=== PATIENT | female | born 1985 | race Asian ===

== ENCOUNTER 2017-05-09 11:51 | Emergency (ER) | payer BC, OTHER ==
[~2017-05-09] VITALS: Ht 165.1 cm; Wt 62.2 kg
[2017-05-09 12:04] VITALS: TEMP 36.5; Ht 165.1 cm; Wt 62.2 kg
[2017-05-09] MEDS ORDERED: PRENTAB26 PO (12:04)
[2017-05-09] MEDS ORDERED: SODIUM CHLORIDE 0.9% 1000ML 2,000 ML IV STA (12:38)
[2017-05-09] MEDS ORDERED: ONDANSETRON 4MG OD TAB PO ONE (12:45)
[2017-05-09 13:04] LABS: ISTAT CREATININE 0.7 mg/dl (0.6-1.3); ISTAT HEMOGLOBIN 12.2 g/dl (12.0-16.0); ISTAT IONIZED CALCIUM 0.93 mmol/l (1.12-1.32)
--- NOTE | 2017-05-09 13:32 | DIAGNOSTIC IMAGING REPORT ---
SINGLE VIEW CHEST CLINICAL HISTORY: Weakness. Change in mental status. Reportedly . FINDINGS: An AP, portable, upright chest radiograph is obtained. No prior studies are available for comparison at the time of dictation. The examination is degraded by portable technique, apical lordotic positioning, and patient rotation. The cardiomediastinal silhouette is unremarkable. A nipple shadow projects over the right lung base. There are low lung volumes. The lungs and pleural spaces are clear. No pneumothorax is seen. The bony thorax is grossly intact. IMPRESSION: Low lung volumes with no acute cardiopulmonary abnormality. Electronically signed by: Mynor Bach M.D. 05/09/2017 1:31 PM Dictated Date/Time: 05/09/2017 1:30 PM
[2017-05-09 13:59] LABS: BASO % 0.1 %; BASO ABS # 0.01 K/uL (0-0.2); COMPLETE YES; EOS % 0.1 %; HEMATOCRIT 32.3 % (37-47); IG% 0.3 %; LYMPH % 9.1 %; LYMPH ABS # 0.88 K/uL (1.2-3.4); MEAN CELL VOLUME 95.3 fL (80-100); MEAN CORPUSCULAR HEMOGLOBIN 32.4 pg (25-34); MEAN CORPUSCULAR HGB CONC 34.1 g/dl (32-36); MONO % 3.5 %; NEUT % 86.9 %; PLATELET COUNT 139 K/uL (130-400); RED BLOOD COUNT 3.39 M/uL (4.2-5.4); WHITE BLOOD COUNT 9.64 K/uL (4.8-10.8)
[2017-05-09 14:12] LABS: INR 0.9 (0.9-1.1); PARTIAL THROMBOPLASTIN RATIO 0.9; PROTHROMBIN TIME (PATIENT) 9.7 SECONDS (9.0-12.0)
[2017-05-09 14:42] LABS: ALT/SGPT 15 U/L (12-78); AST/SGOT 17 U/L (15-37); BLOOD UREA NITROGEN 8 mg/dl (7-18); BUN/CREATININE RATIO 11.1 (10-20); CALCIUM 8.3 mg/dl (8.5-10.1); CARBON DIOXIDE 21 mmol/L (21-32); CHLORIDE 107 mmol/L (98-107); GLUCOSE 57 mg/dl (70-99); POTASSIUM 3.3 mmol/L (3.5-5.1); SODIUM 140 mmol/L (136-145)
[2017-05-09 14:50] LABS: ALB/GLOB RATIO 0.8 (0.9-2); ALKALINE PHOSPHATASE 59 U/L (45-117); CKMB/CK RATIO 2.8 (0-3.0)
[2017-05-09 15:22] LABS: URINE APPEARANCE CLEAR (CLEAR); URINE BILIRUBIN NEG (NEG); URINE COLOR YELLOW; URINE NITRITE NEG (NEG); UROBILINOGEN NEG (NEG)
[2017-05-09 15:32] LABS: MANUAL MICROSCOPIC REQUIRED? NO; REVIEW REQ? NO
--- NOTE | 2017-05-09 15:56 | DIAGNOSTIC IMAGING REPORT ---
LIMITED (US) HISTORY:31 yearsFemalePLACENTA, PHONG, CERVICAL LENGHT. Patient presents status post acute syncopal event. COMPARISON: None available. TECHNIQUE: Limited multiple real-time sonographic images of the intrauterine fetus were obtained transabdominally assessing grayscale appearance and color flow. Additional transvaginal images of the cervix were obtained. FINDINGS: TRANSABDOMINAL: heart rate measures 125 bpm. Posteriorly positioned placenta appears normal at the level of the body of the uterus. Femur length measures 5.4 cm, correlating with estimated gestational age of 20 weeks and 4 days. PHONG is 18.9 cm. TRANSVAGINAL: Cervix length is 4.1 cm and is closed. IMPRESSION: 1. Single living intrauterine gestation with estimated gestational age of 20 weeks and 4 days by femur length. 2. Unremarkable appearance of the placenta and cervix. 3. PHONG of 18.9 cm The above report was generated using voice recognition software. It may contain grammatical, syntax or spelling errors. Electronically signed by: Carl Da Silva 05/09/2017 3:55 PM Dictated Date/Time: 05/09/2017 3:48 PM
[2017-05-09] MEDS ORDERED: D5W AND LACTATED RINGERS 1,000 ML IV STA (16:18)
[2017-05-09 16:25] VITALS: BP 91/56; PULSE 70; O2SAT 99
[2017-05-09] MEDS ORDERED: D5W AND LACTATED RINGERS 1,000 ML IV ONE (16:30)
--- NOTE | 2017-05-09 17:14 | History and Physical ---
History & Physical Date & Time of Service: May 09, 2017 at 16:24 Chief Complaint: Near Syncope, Consult from ER Physician Primary Care Physician: No Doctor, Assigned History of Present Illness Source: patient, family The patient is a 31 year old female at 29 weeks who presented to the Emergency Room via EMS with complaints of a near syncopal episode which happened after she moved her bowels this morning. She has been feleing tired and light headed on and off during this . She was very sick in early and was on Diclegis. She stopped that since it was making her sleepy in the mornings. She states she is still nauseas in the mornings and can not eat much. She gets full quickly and can not drink much either. She was lowered to the floor by her coworkers then Ambulance took her. She currently denies any pain but feels dizzy. She also reports feeling thirsty and hungry. She currently denies any nausea. She denies any recent falls , trauma, or injuries. She denies fevers, chills, abdominal pain, vaginal bleeding, or any other complaints. Denies cxs/ LOF/VB FM + She had ECG, blood work in ER htey were normal except low potassium Family History Patient reports no known family medical history. Social History Smoking Status: Never Smoker Smokeless Tobacco Use: No Alcohol Use: none Drug Use: none Marital Status: Housing status: lives with family Occupational Status: employed Allergies Coded Allergies: No Known Allergies (Unverified , 05/09/17) Home Medications Scheduled Multivit/Min/Iron/Fol Ac/Pren ( Vitamin), 1 TAB PO DAILY Review of Systems Constitutional: No fever, No chills, No sweats, No weight loss, No weakness, No fatigue, No problem reported Eyes: No worsening of vision, No eye pain, No redness, No discharge, No diplopia, No problem reported ENT: No hearing loss, No unusual epistaxis, No nasal symptoms, No sore throat, No tinnitus, No dental problems, No trouble swallowing, No problem reported Abdomen: + pain, + nausea, + vomiting, + diarrhea, + constipation, + GI bleeding, + problem reported Musculoskeletal: No joint pain, No muscle pain, No swelling, No calf pain, No problem reported Genitourinary - Female: No dysuria, No urinary frequency, No urinary urgency, No urinary incontinence, No urinary retention, No hematuria, No dysmenorrhea, No menorrhagia, No metrorrhagia, No rash, No vaginal bleeding, No vaginal discharge, No vaginal itching, No vulvodynia, No , No problem reported Neurologic: No memory loss, No paralysis, No weakness, No numbness/tingling, No vertigo, No balance problems, No problem reported Endocrine: + fatigue, + excessive thirst, + excessive urination, + problem reported Physical Exam Vital Signs Date Time Temp Pulse Resp B/P (MAP) Pulse Ox O2 Delivery O2 Flow Rate FiO2 05/09/17 16:18 67 05/09/17 16:09 72 16 88/56 99 Room Air 05/09/17 15:43 67 16 79/62 100 Room Air 05/09/17 15:12 79 16 89/57 100 Room Air 05/09/17 13:54 84 16 102/57 100 Room Air 05/09/17 13:06 76 14 90/58 100 Room Air 05/09/17 12:18 85 05/09/17 12:04 36.5 65 16 100/54 99 Room Air General Appearance: WD/WN, no apparent distress, + thin Head: normocephalic, atraumatic Eyes: normal inspection Neck: supple Respiratory/Chest: lungs clear, normal breath sounds Cardiovascular: regular rate, rhythm Abdomen/GI: soft, + pertinent finding (contractions q3-4 min) Abd: ctxs q2-3 min, soft in between VE: ext os ft, otherwise closed ling cervix, patient uncomfortable with PE Diagnostics Laboratory Results Results Past 24 Hours Test 05/09/17 12:49 05/09/17 12:50 05/09/17 13:40 05/09/17 13:45 Range/Units White Blood Count 9.64 4.8-10.8 K/uL Red Blood Count 3.39 4.2-5.4 M/uL Hemoglobin 11.0 12.0-16.0 g/dL Hematocrit 32.3 37-47 % Mean Corpuscular Volume 95.3 80-100 fL Mean Corpuscular Hemoglobin 32.4 25-34 pg Mean Corpuscular Hemoglobin Concent 34.1 32-36 g/dl Platelet Count 139 130-400 K/uL Mean Platelet Volume 11.0 7.4-10.4 fL Neutrophils (%) (Auto) 86.9 % Lymphocytes (%) (Auto) 9.1 % Monocytes (%) (Auto) 3.5 % Eosinophils (%) (Auto) 0.1 % Basophils (%) (Auto) 0.1 % Neutrophils # (Auto) 8.37 1.4-6.5 K/uL Lymphocytes # (Auto) 0.88 1.2-3.4 K/uL Monocytes # (Auto) 0.34 0.11-0.59 K/uL Eosinophils # (Auto) 0.01 0-0.5 K/uL Basophils # (Auto) 0.01 0-0.2 K/uL RDW Standard Deviation 45.2 36.4-46.3 fL RDW Coefficient of Variation 13.0 11.5-14.5 % Immature Granulocyte % (Auto) 0.3 % Immature Granulocyte # (Auto) 0.03 0.00-0.02 K/uL Human Chorionic Gonadotropin, Quant 4996 mIU/mL Bedside Hemoglobin 12.2 12.0-16.0 g/dl Bedside Hematocrit 36 37-47 % Bedside Sodium 136 135-144 mEq/L Bedside Potassium 3.6 3.3-5.0 mEq/L Bedside Chloride 104 101-112 mEq/L Bedside Total CO2 22 24-31 mEq/l Anion Gap 14.0 12.0 3-11 mmol/L Bedside Blood Urea Nitrogen 6 7-18 mg/dl Bedside Creatinine 0.7 0.6-1.3 mg/dl Bedside Glucose (other) 77 70-99 mg/dl Bedside Ionized Calcium (Oseas) 0.93 1.12-1.32 mmol/l Creatine Kinase MB Ratio 2.8 0-3.0 Sodium Level 140 136-145 mmol/L Potassium Level 3.3 3.5-5.1 mmol/L Chloride Level 107 98-107 mmol/L Carbon Dioxide Level 21 21-32 mmol/L Blood Urea Nitrogen 8 7-18 mg/dl Creatinine 0.70 0.60-1.20 mg/dl Est Creatinine Clear Calc Drug Dose 104.8 ml/min Estimated GFR () 133.8 Estimated GFR (Non- 115.5 BUN/Creatinine Ratio 11.1 10-20 Random Glucose 57 70-99 mg/dl Calcium Level 8.3 8.5-10.1 mg/dl Total Bilirubin 0.3 0.2-1 mg/dl Direct Bilirubin < 0.1 0-0.2 mg/dl Aspartate Amino Transf (AST/SGOT) 17 15-37 U/L Alanine Aminotransferase (ALT/SGPT) 15 12-78 U/L Alkaline Phosphatase 59 45-117 U/L Total Creatine Kinase 97 26-192 U/L Creatine Kinase MB 2.7 0.5-3.6 ng/ml Troponin I < 0.015 0-0.045 ng/ml Pro-B-Type Natriuretic Peptide 51 0-450 pg/ml Total Protein 6.0 6.4-8.2 gm/dl Albumin 2.6 3.4-5.0 gm/dl Globulin 3.4 2.5-4.0 gm/dl Albumin/Globulin Ratio 0.8 0.9-2 Lipase 183 73-393 U/L Thyroid Stimulating Hormone (TSH) 1.540 0.300-4.500 uIu/ml Prothrombin Time 9.7 9.0-12.0 SECONDS Prothromb Time International Ratio 0.9 0.9-1.1 Activated Partial Thromboplast Time 22.6 21.0-31.0 SECONDS Partial Thromboplastin Ratio 0.9 Test 05/09/17 14:50 Range/Units Urine Color YELLOW Urine Appearance CLEAR CLEAR Urine pH 8.0 4.5-7.5 Urine Specific [place] 1.010 1.000-1.030 Urine Protein NEG NEG Urine Glucose (UA) NEG NEG Urine Ketones 1+ NEG Urine Occult Blood NEG NEG Urine Nitrite NEG NEG Urine Bilirubin NEG NEG Urine Urobilinogen NEG NEG Urine Leukocyte Esterase NEG NEG Diagnostic Radiology OB US: Normal placenta, PHONG and cervix CL: 3.5 to 4 cm per pictures NST: 140's reactive [place]: ctxs q2-3 min Normal EKG (per ER Doctor) Impression Assessment and Plan AP; 31 yo at 29 weeks, s/p near syncope this morning Low BP, improved with IVF hydration h/o low BMI, low BP and low PO intake due to persistent nausea of Ketone+ in urine contractions with closed and long cervix Most likely from dehydration FHR reassuring Discussed the case with ER physician, cardiac work up negative Plan: observe, monitor, IV hydration at L&D and recheck
[2017-05-09] MEDS ORDERED: METO-157 PO (19:31)
--- NOTE | 2017-05-09 20:08 | EMERGENCY ROOM VISIT NOTE ---
History Report prepared by Danieliblenora: Augusta Cisneros Under the Supervision of: Dr. Leroy Che D.O. First contact with patient: 12:33 Chief Complaint: SYNCOPE (NEAR SYNCOPE) Stated Complaint: NEAR SYNCOPE Nursing Triage Summary: 7 MONTHS PREG. FEELING TIRED LAST FEW DAYS AND NEAR SYNOPE AT WORK History of Present Illness The patient is a 31 year old female who presents to the Emergency Room via EMS with complaints of a syncopal episode occurring today. The patient is currently 29 weeks . This is her first . She felt tired this morning but was otherwise at baseline. She had been feeling at baseline for the past few days. The patient had a bowel movement at work when she started feeling lightheaded and lost consciousness. She was lowered to the floor by her coworkers. She had nausea and vomiting. She currently denies any pain but feels dizzy. She also reports feeling thirsty and hungry. She currently denies any nausea. She denies any recent falls, trauma, or injuries. She denies fevers, chills, abdominal pain, vaginal bleeding, or any other complaints. Source of History: patient Onset: today Position: other (global) Symptom Intensity: No pain Quality: other (Syncope) Associated Symptoms: + LOC, + nausea, + vomiting, No fevers, No chills, No abdominal pain Review of Systems See HPI for pertinent positives & negatives. A total of 10 systems reviewed and were otherwise negative. Past Medical & Surgical Medical Problems: (1) Near syncope (2) uterine contractions Family History Patient reports no known family medical history. Social History Smoking Status: Never Smoker Marital Status: single Occupation Status: employed Current/Historical Medications Scheduled Metoclopramide (Reglan), 10 MG PO Q8 Multivit/Min/Iron/Fol Ac/Pren ( Vitamin), 1 TAB PO DAILY Allergies Coded Allergies: No Known Allergies (Unverified , 05/09/17) Physical Exam Vital Signs Date Time Temp Pulse Resp B/P (MAP) Pulse Ox O2 Delivery O2 Flow Rate FiO2 05/09/17 16:25 70 16 91/56 99 05/09/17 16:18 67 05/09/17 16:09 72 16 88/56 99 Room Air 05/09/17 15:43 67 16 79/62 100 Room Air 05/09/17 15:12 79 16 89/57 100 Room Air 05/09/17 13:54 84 16 102/57 100 Room Air 05/09/17 13:06 76 14 90/58 100 Room Air 05/09/17 12:18 85 05/09/17 12:04 36.5 65 16 100/54 99 Room Air Physical Exam CONSTITUTIONAL/VITAL SIGNS: Reviewed / noted above. GENERAL: Non-toxic in appearance. INTEGUMENTARY: Warm, dry, and [place]. HEAD: Normocephalic. EYES: without scleral icterus or trauma. ENT/OROPHARYNX: clear and moist. LYMPHADENOPATHY/NECK: Is supple without lymphadenopathy or meningismus. RESPIRATORY: Lungs clear and equal. CARDIOVASCULAR: Regular rate and rhythm. GI/ABDOMEN: Gravid abdomen. Soft and nontender. No organomegaly or pulsatile mass. No rebound or guarding. Normal bowel sounds. EXTREMITIES: Warm and well perfused. BACK: No CVA tenderness. NEUROLOGICAL: Intact without focal deficits. PSYCHIATRIC: normal affect. MUSCULOSKELETAL: Normally developed with good muscle tone. Medical Decision & Procedures ER Provider Diagnostic Interpretation: X ray results and stated below per my interpretation and radiology interpretation. SINGLE VIEW CHEST CLINICAL HISTORY: Weakness. Change in mental status. Reportedly . FINDINGS: An AP, portable, upright chest radiograph is obtained. No prior studies are available for comparison at the time of dictation. The examination is degraded by portable technique, apical lordotic positioning, and patient rotation. The cardiomediastinal silhouette is unremarkable. A nipple shadow projects over the right lung base. There are low lung volumes. The lungs and pleural spaces are clear. No pneumothorax is seen. The bony thorax is grossly intact. IMPRESSION: Low lung volumes with no acute cardiopulmonary abnormality. Electronically signed by: Mynor Bach M.D. 05/09/2017 1:31 PM Dictated Date/Time: 05/09/2017 1:30 PM US results as stated below per my review and radiologist interpretation: ] LIMITED (US) HISTORY:31 yearsFemalePLACENTA, PHONG, CERVICAL LENGHT. Patient presents status post acute syncopal event. COMPARISON: None available. TECHNIQUE: Limited multiple real-time sonographic images of the intrauterine fetus were obtained transabdominally assessing grayscale appearance and color flow. Additional transvaginal images of the cervix were obtained. FINDINGS: TRANSABDOMINAL: heart rate measures 125 bpm. Posteriorly positioned placenta appears normal at the level of the body of the uterus. Femur length measures 5.4 cm, correlating with estimated gestational age of 20 weeks and 4 days. PHONG is 18.9 cm. TRANSVAGINAL: Cervix length is 4.1 cm and is closed. IMPRESSION: 1. Single living intrauterine gestation with estimated gestational age of 20 weeks and 4 days by femur length. 2. Unremarkable appearance of the placenta and cervix. 3. PHONG of 18.9 cm The above report was generated using voice recognition software. It may contain grammatical, syntax or spelling errors. Electronically signed by: Carl Da Silva 05/09/2017 3:55 PM Dictated Date/Time: 05/09/2017 3:48 PM Laboratory Results 05/09/17 12:49 Red Blood Count 3.39, Mean Corpuscular Volume 95.3, Mean Corpuscular Hemoglobin 32.4, Mean Corpuscular Hemoglobin Concent 34.1, Mean Platelet Volume 11.0, Neutrophils (%) (Auto) 86.9, Lymphocytes (%) (Auto) 9.1, Monocytes (%) (Auto) 3.5, Eosinophils (%) (Auto) 0.1, Basophils (%) (Auto) 0.1, Neutrophils # (Auto) 8.37, Lymphocytes # (Auto) 0.88, Monocytes # (Auto) 0.34, Eosinophils # (Auto) 0.01, Basophils # (Auto) 0.01 05/09/17 13:40 Test 05/09/17 12:49 05/09/17 12:50 05/09/17 13:40 05/09/17 13:45 White Blood Count 9.64 K/uL (4.8-10.8) Red Blood Count 3.39 M/uL (4.2-5.4) Hemoglobin 11.0 g/dL (12.0-16.0) Hematocrit 32.3 % (37-47) Mean Corpuscular Volume 95.3 fL (80-100) Mean Corpuscular Hemoglobin 32.4 pg (25-34) Mean Corpuscular Hemoglobin Concent 34.1 g/dl (32-36) Platelet Count 139 K/uL (130-400) Mean Platelet Volume 11.0 fL (7.4-10.4) Neutrophils (%) (Auto) 86.9 % Lymphocytes (%) (Auto) 9.1 % Monocytes (%) (Auto) 3.5 % Eosinophils (%) (Auto) 0.1 % Basophils (%) (Auto) 0.1 % Neutrophils # (Auto) 8.37 K/uL (1.4-6.5) Lymphocytes # (Auto) 0.88 K/uL (1.2-3.4) Monocytes # (Auto) 0.34 K/uL (0.11-0.59) Eosinophils # (Auto) 0.01 K/uL (0-0.5) Basophils # (Auto) 0.01 K/uL (0-0.2) RDW Standard Deviation 45.2 fL (36.4-46.3) RDW Coefficient of Variation 13.0 % (11.5-14.5) Immature Granulocyte % (Auto) 0.3 % Immature Granulocyte # (Auto) 0.03 K/uL (0.00-0.02) Human Chorionic Gonadotropin, Quant 4996 mIU/mL Bedside Hemoglobin 12.2 g/dl (12.0-16.0) Bedside Hematocrit 36 % (37-47) Bedside Sodium 136 mEq/L (135-144) Bedside Potassium 3.6 mEq/L (3.3-5.0) Bedside Chloride 104 mEq/L (101-112) Bedside Total CO2 22 mEq/l (24-31) Bedside Blood Urea Nitrogen 6 mg/dl (7-18) Bedside Creatinine 0.7 mg/dl (0.6-1.3) Bedside Glucose (other) 77 mg/dl (70-99) Bedside Ionized Calcium ([place]se[place]) 0.93 mmol/l (1.12-1.32) Anion Gap 12.0 mmol/L (3-11) Est Creatinine Clear Calc Drug Dose 104.8 ml/min Estimated GFR () 133.8 Estimated GFR (Non- 115.5 BUN/Creatinine Ratio 11.1 (10-20) Calcium Level 8.3 mg/dl (8.5-10.1) Total Bilirubin 0.3 mg/dl (0.2-1) Direct Bilirubin < 0.1 mg/dl (0-0.2) Aspartate Amino Transf (AST/SGOT) 17 U/L (15-37) Alanine Aminotransferase (ALT/SGPT) 15 U/L (12-78) Alkaline Phosphatase 59 U/L (45-117) Total Creatine Kinase 97 U/L (26-192) Creatine Kinase MB 2.7 ng/ml (0.5-3.6) Creatine Kinase MB Ratio 2.8 (0-3.0) Troponin I < 0.015 ng/ml (0-0.045) Pro-B-Type Natriuretic Peptide 51 pg/ml (0-450) Total Protein 6.0 gm/dl (6.4-8.2) Albumin 2.6 gm/dl (3.4-5.0) Globulin 3.4 gm/dl (2.5-4.0) Albumin/Globulin Ratio 0.8 (0.9-2) Lipase 183 U/L (73-393) Thyroid Stimulating Hormone (TSH) 1.540 uIu/ml (0.300-4.500) Prothrombin Time 9.7 SECONDS (9.0-12.0) Prothromb Time International Ratio 0.9 (0.9-1.1) Activated Partial Thromboplast Time 22.6 SECONDS (21.0-31.0) Partial Thromboplastin Ratio 0.9 Test 05/09/17 14:50 Urine Color YELLOW Urine Appearance CLEAR (CLEAR) Urine pH 8.0 (4.5-7.5) Urine Specific [place] 1.010 (1.000-1.030) Urine Protein NEG (NEG) Urine Glucose (UA) NEG (NEG) Urine Ketones 1+ (NEG) Urine Occult Blood NEG (NEG) Urine Nitrite NEG (NEG) Urine Bilirubin NEG (NEG) Urine Urobilinogen NEG (NEG) Urine Leukocyte Esterase NEG (NEG) Laboratory results as stated above per my review. Medications Administered Medications (Trade) Dose Ordered Sig/Mona Route Start Time Stop Time Status Last Admin Dose Admin Sodium Chloride 2,000 ml @ 999 mls/hr Q2H1M STAT IV 05/09/17 12:38 05/09/17 14:38 DC 05/09/17 12:15 999 MLS/HR Dextrose/Lactated Ringer's 1,000 ml @ 999 mls/hr Q1H1M STAT IV 05/09/17 16:18 05/09/17 17:18 DC 05/09/17 16:18 999 MLS/HR ECG Indication: syncope Rate (beats per minute): 89 Rhythm: normal sinus Findings: no acute ischemic change, no ectopy ED Course 1233: Previous medical records were reviewed. The patient was evaluated in room B05. A complete history and physical examination was performed. 1238: Sodium Chloride 2000 ml @ 999 mls/hr IV 1245: Zofran Odt 4 mg PO 1317: I discussed the patient's case with Dr. Vaz, OB-COMPLAINT ANALYST with [facility]. 1612: On reevaluation, the patient is resting comfortably. I discussed the results and findings with her. She verbalized agreement of the treatment plan. I spoke with Dr. Vaz, OB-COMPLAINT ANALYST with [facility]. The patient will be evaluated for further management and care. 1618: Dextrose/Lactated Ringer's 1000 ml @ 999 mls/hr IV Medical Decision Medication Reconciliation: I attest that I have personally reviewed the patient' s current medication list. Differential includes acute cardiac dysrhythmia, microinfarction, CVA, TIA, dehydration, anemia, electrolyte disturbance, seizure, trauma, intracranial bleeding, acute vascular catastrophe, thoracic aortic dissection, PE, abdominal aortic aneurysm rupture, ectopic rupture. This is a 31-year-old female who presents to the ED with a chief complaint of syncope. The patient had a syncopal episode at work today. She states that she became lightheaded and around 11 AM and then had syncope. The patient states this occurred after she had a bowel movement. The patient had some vomiting on the way here by EMS. The patient is a G1, P1 29 week female. She states that her blood pressure normally runs around 90 systolic during her . The patient has no significant complaints other than feeling somewhat lightheaded at times and a little nauseated. She states that her appetite is generally been poor and she did not eat well today. Her blood pressure or her stay was as low as 65/41. She was resuscitated with IV fluids with 2 L normal saline. She was also given a liter of D5 lactated Ringer's. The patient has a normal sinus rhythm on EKG. She was never tachycardic. Her hemoglobin is 12.2. heart tones are noted at 161 on the patient's arrival. Her hemoglobin is 11. Complete metabolic panel was normal. Troponin was negative. BNP is normal. TSH is normal. Chest x-ray did not show acute disease. Pelvic ultrasound did not show acute process or significant abnormality. The patient by obstetric services here. We did have monitoring performed in the emergency department. The patient was then taken upstairs for further monitoring. Her blood pressure seemed to improve after IV fluids. Consults Time Called: 1313 Consulting Physician: Dr. Vaz, OB-COMPLAINT ANALYST with [facility] Returned Call: [phone] I discussed the patient's case with Dr. Vaz, OB-COMPLAINT ANALYST with [facility]. Impression Primary Impression: Syncope Additional Impressions: Hypotension Dehydration Scribe Attestation The scribe's documentation has been prepared under my direction and personally reviewed by me in its entirety. I confirm that the note above accurately reflects all work, treatment, procedures, and medical decision making performed by me. Departure Information Dispostion Other (Dr. Vaz, OB-COMPLAINT ANALYST with [facility]) Referrals Clark Katz M.D. (PCP) Patient Instructions My [facility] Problem Qualifiers
== END 2017-05-09 16:28 | disposition home or self-care (01) ==
LOC: EDBD 11:51 → C.EDB 11:52
DX: O26.93 Pregnancy related conditions, unspecified, third trimester (principal); R55 Syncope and collapse; I95.9 Hypotension, unspecified; E86.0 Dehydration

== ENCOUNTER 2017-05-09 16:35 | Outpatient (CLI) | payer BC ==
[~2017-05-09] VITALS: Ht 165.1 cm; Wt 61.0 kg
[~2017-05-09 16:35] MED LIST: PRENTAB26 PO
[2017-05-09] MEDS ORDERED: D5W AND LACTATED RINGERS 1,000 ML IV SCH (17:06)
[2017-05-09] MEDS: POTASSIUM CHLR 10 MEQ / WTR 10 MEQ in PREMIXED WATER 100 ML IV SCH ×2 (17:55→18:53)
[2017-05-09] MEDS ORDERED: METO-157 PO (19:31)
[2017-05-09 19:36] VITALS: Ht 165.1 cm; Wt 61.0 kg
[2017-07-31] MEDS ORDERED: MTR600X PO (09:42)
[2017-07-31] MEDS ORDERED: MOMLX MT (09:42)
[2017-07-31] MEDS ORDERED: FRRS300 PO (09:42)
[2017-07-31] MEDS ORDERED: CLC100 PO (09:42)
[2017-07-31] MEDS ORDERED: ACET-1047 PO (09:42)
== END 2017-05-09 20:11 | disposition home or self-care (01) ==
LOC: C.OPB 16:35 → C.LD 16:35 → C.OPB 20:11
PROVIDERS: ATTEND Obstetrics & Gynecology
DX: O62.9 Abnormality of forces of labor, unspecified (principal); R55 Syncope and collapse; Z3A.29 29 weeks gestation of pregnancy

== ENCOUNTER 2017-07-29 10:24 | Inpatient (IN) | payer BC ==
[~2017-07-29] VITALS: Ht 165.1 cm; Wt 76.0 kg
[~2017-07-29 10:24] MED LIST changes: +METO-157 PO
[2017-07-29] MEDS ORDERED: LACTATED RINGER'S 1000ML 1,000 ML IV SCH (11:55)
[2017-07-29] MEDS ORDERED: LACTATED RINGER'S 1000ML 1,000 ML IV PRN (11:55)
[2017-07-29 12:29] LABS: HEMATOCRIT 38.4 % (37-47); MEAN CELL VOLUME 91.9 fL (80-100); MEAN CORPUSCULAR HEMOGLOBIN 29.7 pg (25-34); MEAN CORPUSCULAR HGB CONC 32.3 g/dl (32-36); MEAN PLATELET VOLUME 11.2 fL (7.4-10.4); PLATELET COUNT 185 K/uL (130-400); RED BLOOD COUNT 4.18 M/uL (4.2-5.4); WHITE BLOOD COUNT 9.11 K/uL (4.8-10.8)
[2017-07-29] MEDS ORDERED: LACTATED RINGER'S 1000ML 500 ML IV PRN (12:31)
[2017-07-29] MEDS ORDERED: OXYTOCIN 30 UNITS/500ML NSS IV PRN ×2 (12:45→18:00)
[2017-07-29 14:02] VITALS: Ht 165.1 cm; Wt 76.0 kg
[2017-07-29] MEDS ORDERED: BUTORPHANOL TARTRATE 1 MG/ML VIAL ONE (17:14)
[2017-07-29] MEDS ORDERED: BENZOCAINE 20% AER SPR 82.5 GM CAN ONE (17:46)
[2017-07-29] MEDS ORDERED: BENZOCAINE 20% AER SPR 82.5 GM CAN EXT PRN (18:00)
[2017-07-29] MEDS ORDERED: OXYCODONE/ACETAMINOPHEN 5-325 TAB PO PRN (18:00)
[2017-07-29] MEDS ORDERED: ACETAMINOPHEN 325 MG TAB PO PRN (18:00)
[2017-07-29] MEDS ORDERED: ACETAMINOPHEN/CODEINE 300/30MG TAB PO PRN (18:00)
[2017-07-29] MEDS ORDERED: LANOLIN OINT EXT PRN ×2 (18:00)
[2017-07-29] MEDS ORDERED: HYDROCORTISONE ACETATE 25 MG SUPP PR PRN (18:00)
[2017-07-29] MEDS ORDERED: SUPERCREAM 0.870 % 15GM JAR EXT PRN (18:00)
[2017-07-29] MEDS: IBUPROFEN 600 MG TAB PO PRN ×2 (18:58→23:30)
--- NOTE | 2017-07-29 19:48 | DELIVERY SUMMARY ---
DATE OF OPERATION: 07/29/2017 TIME OF DELIVERY: 1705. DELIVERY OF PLACENTA: 1709. DELIVERY NOTE: The patient is a 31-year-old 1, para 0 at 40 weeks and 4 days gestation who was admitted to labor and delivery on the afternoon of 07/29/2017 in active labor. She was found to be 5 cm in the office and was sent over for admission to labor and delivery. The patient progressed on her own. She did not receive an epidural for anesthesia. Spontaneous rupture of membranes occurred at 5:30 with clear amniotic fluid. She reached complete dilation at 1553. She pushed to delivery at 1705. She delivered a viable female in the left occiput anterior position to an intact perineum. Nuchal cord x1 was reduced at delivery. The baby was delivered and placed on the patient's abdomen. Cord was clamped x2 and cut. Apgars were 8 at 1 minute and 9 at 5 minutes. Please see nursing notes for further baby assessment. Cord blood donation was collected along with cord blood. An intact placenta with 3-vessel cord was delivered at 1709. Oxytocin infusion was then begun. The lower uterine segment and vagina were cleared of any blood clots and debris. Exploration of the perineum noted a third-degree perineal laceration at midline. The rectal mucosa was intact. The external sphincter muscles were grasped with Allis clamps and were suture ligated at 4 quadrants with 0 Vicryl suture in a [id number] interrupted fashion. Once the sphincter muscles were intact, the rest of the laceration was repaired with 2-0 and 3-0 Vicryl in a normal fashion. A digital rectal exam was completed, noting excellent sphincter tone with no suture within the mucosa. No other lacerations were seen. Estimated blood loss was 400 mL. All sponge, instrument and needle counts were found to be correct x2. Both patient and baby tolerated the delivery well and were in recovery with stable vital signs. I attest to the content of the Intraoperative Record and any orders documented therein. Any exceptions are noted below. MTDD
[2017-07-29 21:10] VITALS: BP 108/71; PULSE 85; TEMP 36.8; O2SAT 98
[2017-07-29] MEDS: DOCUSATE SODIUM 100 MG CAP PO SCH (22:23)
[2017-07-29 23:20] VITALS: BP 103/68; PULSE 89; TEMP 36.7; O2SAT 95
[2017-07-30 04:00] VITALS: BP 97/60; PULSE 74; TEMP 36.6; O2SAT 99
[2017-07-30] MEDS: IBUPROFEN 600 MG TAB PO PRN ×5 (04:26→20:38)
[2017-07-30 07:30] LABS: HEMATOCRIT 29.1 % (37-47)
[2017-07-30] MEDS ORDERED: INFLUENZA ADMINISTRATION CHARGE ONE (08:00)
[2017-07-30] MEDS: FERROUS SULFATE 325 MG TAB PO SCH (08:00)
[2017-07-30] MEDS ORDERED: INFLUENZA VIRUS QUAD VACCINE 0.5 ML SYR IM. ONE (08:00)
[2017-07-30 08:40] VITALS: BP 105/70; PULSE 84; TEMP 36.7
--- NOTE | 2017-07-30 08:45 | OB/GYN Progress Note ---
[employer] Progress Note Date of Service: Jul 30, 2017. Patient is seen and examined. She feels well, no complaints. Ambulating without dizziness Voiding without difficulty Tolerating regular diet with out N&V Bleeding is minimal No fever/ chills/ CP/ SOB/ N&V/ Leg pain Breast feeding without problems Date Time Temp Pulse Resp B/P (MAP) Pulse Ox O2 Delivery O2 Flow Rate FiO2 07/30/17 04:00 36.6 74 16 97/60 (72) 99 Room Air 07/29/17 23:20 95 Room Air 07/29/17 23:20 36.7 89 16 103/68 (80) 95 Room Air 07/29/17 21:10 36.8 85 16 108/71 (83) 98 Room Air 07/29/17 21:10 98 Room Air Last 24 Hours Test 07/29/17 12:14 07/30/17 06:59 White Blood Count 9.11 K/uL Red Blood Count 4.18 M/uL Hemoglobin 12.4 g/dL 10.1 g/dL Hematocrit 38.4 % 29.1 % Mean Corpuscular Volume 91.9 fL Mean Corpuscular Hemoglobin 29.7 pg Mean Corpuscular Hemoglobin Concent 32.3 g/dl RDW Standard Deviation 43.4 fL RDW Coefficient of Variation 13.2 % Platelet Count 185 K/uL Mean Platelet Volume 11.2 fL PE: General: Alert, orientedx3, NAD Abd: soft, NT, fundus firm, below Umbilicus Perineum intact, Lochia rubra minimal Ext; NT, no edema AP: 31 yo s/p , ppd# 1 VSS Afebrile doing well Continue routine care All questions were answered D/C home tomorrow
[2017-07-30] MEDS: PRENATAL VITAMIN TAB PO SCH (08:57)
[2017-07-30] MEDS: DOCUSATE SODIUM 100 MG CAP PO SCH ×2 (08:57→16:25)
[2017-07-30] MEDS ORDERED: DIPHTHERIA/TETANUS/PERTUSSIS 0.5 ML SYR/VIAL IM. ONE (09:00)
[2017-07-30 13:00] VITALS: BP 103/68; PULSE 85; TEMP 36.7
[2017-07-30 15:15] VITALS: BP 95/85; PULSE 74; TEMP 36.7; O2SAT 99
[2017-07-30] MEDS ORDERED: BISACODYL 5 MG TABEC PO SCH (20:00)
[2017-07-30 23:15] VITALS: BP 97/57; PULSE 87; TEMP 36.7; O2SAT 97
[2017-07-31] MEDS: IBUPROFEN 600 MG TAB PO PRN (00:50)
[2017-07-31 06:08] LABS: HEMATOCRIT 28.4 % (37-47); MEAN CELL VOLUME 92.5 fL (80-100); MEAN CORPUSCULAR HEMOGLOBIN 30.6 pg (25-34); MEAN CORPUSCULAR HGB CONC 33.1 g/dl (32-36); MEAN PLATELET VOLUME 10.4 fL (7.4-10.4); PLATELET COUNT 157 K/uL (130-400); RED BLOOD COUNT 3.07 M/uL (4.2-5.4); WHITE BLOOD COUNT 10.87 K/uL (4.8-10.8)
[2017-07-31] MEDS ORDERED: BISACODYL 10 MG SUPP PR PRN (07:00)
[2017-07-31] MEDS: FERROUS SULFATE 325 MG TAB PO SCH (07:43)
[2017-07-31] MEDS: ACETAMINOPHEN/CODEINE 300/30MG TAB PO PRN ×2 (07:43→12:50)
[2017-07-31] MEDS: PRENATAL VITAMIN TAB PO SCH (07:43)
[2017-07-31] MEDS: DOCUSATE SODIUM 100 MG CAP PO SCH (07:43)
[2017-07-31 08:25] VITALS: BP 100/66; PULSE 81; TEMP 36.6
--- NOTE | 2017-07-31 09:39 | OB/GYN Progress Note ---
[employer] OPER[employer] Progress Note Date of Service: Jul 31, 2017. Patient is seen and examined. She feels well, no complaints just sore hemorrhoids Ambulating without dizziness Voiding without difficulty Tolerating regular diet with out N&V Bleeding is minimal No fever/ chills/ CP/ SOB/ N&V/ Leg pain Breast feeding without problems Date Time Temp Pulse Resp B/P (MAP) Pulse Ox O2 Delivery O2 Flow Rate FiO2 07/31/17 08:25 36.6 81 20 100/66 (77) 07/30/17 23:15 36.7 87 18 97/57 (70) 97 Room Air 07/30/17 23:15 97 Room Air 07/30/17 15:15 Room Air 07/30/17 15:15 36.7 74 16 95/85 (88) 99 Room Air 07/30/17 13:00 36.7 85 16 103/68 (80) Room Air Last 24 Hours Test 07/31/17 05:51 White Blood Count 10.87 K/uL Red Blood Count 3.07 M/uL Hemoglobin 9.4 g/dL Hematocrit 28.4 % Mean Corpuscular Volume 92.5 fL Mean Corpuscular Hemoglobin 30.6 pg Mean Corpuscular Hemoglobin Concent 33.1 g/dl RDW Standard Deviation 45.4 fL RDW Coefficient of Variation 13.5 % Platelet Count 157 K/uL Mean Platelet Volume 10.4 fL PE: General: Alert, orientedx3, NAD Abd: soft, NT, fundus firm, below Umbilicus Perineum intact, Lochia rubra minimal Ext. hemorrhoid, pink, soft Ext; NT, no edema AP: 31 yo s/p , ppd# 2 VSS Afebrile doing well Continue routine care All questions were answered Instructions were given when to call D/C home , f/u in office
[2017-07-31] MEDS ORDERED: MOMLX MT (09:42)
[2017-07-31] MEDS ORDERED: CLC100 PO (09:42)
[2017-07-31] MEDS ORDERED: FRRS300 PO (09:42)
[2017-07-31] MEDS ORDERED: MTR600X PO (09:42)
[2017-07-31] MEDS ORDERED: ACET-1047 PO (09:42)
--- NOTE | 2017-07-31 09:43 | Discharge Instructions ---
Discharge Instructions Date of Service Jul 31, 2017. Admission Reason for Admission: R/O Labor Discharge Discharge Diagnosis / Problem: Discharge Goals Goal(s): Routine recovery after delivery Medications Continue Dispensed Medications: supercream, dermaplast, lansinoh Activity Recommendations Activity Limitations: as noted below ACTIVITY RECOMMENDATIONS: * Gradual return to full activity over the next 2-3 weeks. * No lifting - nothing heavier than baby over the next 2-3 weeks. * Do not engage in vigorous exercise, sexual activity or sports until cleared by your physician. * Do not drive or operate any motorized equipment until cleared by your physician. * You may shower/bathe daily. BREAST CARE: If you are not breast feeding: * Wear a supportive bra 24 hours a day for one to two weeks. * Avoid stimulating your breasts and nipples as much as possible during the first few weeks after delivery. * When taking a shower, have the warm water hit your back, not breasts. * When your breasts feel full, apply ice packs. Usually three to four times a day helps ease the discomfort. * Take a mild pain medication (Tylenol/Motrin) when you are uncomfortable. If breast feeding: * Use breast milk to lubricate nipples. Lansinoh cream may be used for sore nipples. You do not need to remove cream prior to breast feeding. If using a different brand of cream, check the label for directions regarding removal of cream prior to nursing. * Wear a supportive bra. * If having problems with breasts or breast feeding, call a senior treasury consultant or your health care provider. EPISIOTOMY CARE: After delivery, if you have an episiotomy (stitches), the following steps will ease discomfort and aid healing. * For the first 24 hours after delivery, place ice packs next to your episiotomy to help reduce swelling. * After the first 24 hour-period, sitz baths, either portable or in the tub, are suggested. A shower with a shower arm sprayed over the episiotomy may be comforting. * Iris care should be done after each voiding and bowel movement. Squirt warm water from a plastic bottle over the perineum (region of the body between the anus and urinary opening) and pat dry. * Use Dermoplast to ease discomfort. Shake container. [place] directly over the episiotomy. * Place a Tucks on a clean sanitary pad next to your episiotomy. OVER THE COUNTER MEDICATION: * For discomfort or pain, you may use Acetaminophen (Tylenol), Ibuprofen (Advil ), or Naproxen (Aleve) following the package directions. * For constipation you may use Colace following the package directions. SPECIAL CARE INSTRUCTIONS: When you are discharged from the hospital, it is important for you to follow the instructions listed below: * During the first week at home, you should be able to care for yourself and your baby. In addition, the usual light household activities are encouraged. * Limit your activities to the way you feel. Do not try to clean the house or move furniture. Be sensible. * If you actively engage in sports and have done so up until the time of your delivery, you may resume these activities as soon as you feel able. This may take up to one month or even longer. Use good judgment. * Continue to take your vitamins for at least six weeks after the of your baby. * Your diet need not be limited unless you were on a special diet before your delivery. Breast-feeding mothers need around 2500 calories per day and at least 64-80 ounces of fluid per day (8 to 10 glasses). * You should eat foods from the four major food groups. Crash diets or fad diets are to be avoided. Eating lean meats, fresh fruits and vegetables, low-fat dairy products, high fiber foods and a regular exercise program, will help you get back to your pre- weight without putting your health at risk. * Constipation is sometimes a problem after delivery. Take a mild laxative as needed. If breast feeding, Milk of Magnesia is acceptable to use. You may use a suppository or Fleets enema if no episiotomy. * A daily shower or tub bath is suggested. Be sure to thoroughly and gently dry the perineum. * A bloody vaginal discharge will usually continue until around four weeks post . A small amount of bleeding may continue for as long as six weeks. Vaginal discharge changes from the bright red bleeding after delivery to pink then brownish and finally yellowish-pink before becoming white and disappearing. * Bleeding may increase with activity. Your first period may come in 4-8 weeks. If you are breast feeding, your period may be delayed even longer. * [place] (sex) can begin whenever both you and your partner feel comfortable and do not have any form of genital infection. It is recommended that you wait until after your return appointment and discuss with your physician. If you have questions, please talk to your health care practitioner. A condom should be used to prevent infection and . * Foreplay, gentle intercourse and lubrication is very important the first several times to prevent pain. A water-based lubricant such as K-Y jelly or Astroglide may be used. * Tampons may be used six weeks after delivery. * Douching should be avoided for 6 weeks after delivery. * If you have RH negative blood and your baby is RH positive, you will receive RHOGAM by injection prior to discharge. The nurse will give you a card to keep with you that has the date and place that you received RHOGAM after delivery. * During your care, you had a Rubella screen done to check for the presence of rubella antibodies in your blood. If your test was negative, you will receive a Rubella vaccine prior to discharge. This vaccine may cause a fever, soreness at the injection site and flu-like symptoms. If these symptoms persist, notify your health care practitioner. is not advised for three months after a Rubella vaccine. There is a higher chance of having a baby with defects if conceived within three months of getting the vaccine. * If you were discharged 24 hours from delivery or before 48 hours: Visiting nurses will come to your home 48 hours after discharge to assess you and your baby. The visiting nurse will meet with you while you are in the hospital to arrange a time and get directions to your home. * Verbalizes understanding of car seat law as reviewed with patient nursing. * Car Seat hand-out given and reviewed with patient by nursing. * Shaken baby information reviewed with patient by nursing. Call you doctor if: * Heavy bleeding (saturating several pads an hour) or passing clots the size of your fist. * A fever >101 degrees F (38.3 degrees C) on two occasions four hours apart and/or chills. * Unusual pain in the pelvic or vaginal areas. * "Baby Blues" lasting longer than two weeks. If you have any questions or concerns, call your health care practitioner at . FOLLOW-UP VISIT: * Please call the office at to schedule a 6 week examination. It is important you keep this appointment. * It is important for you to make arrangements for either yearly or twice yearly check-ups thereafter. . Current Hospital Diet Patient's current hospital diet: Regular OB Diet Discharge Diet Recommended Diet: Regular Diet Pending Studies Studies pending at discharge: no Medical Emergencies . Who to Call and When: Medical Emergencies: If at any time you feel your situation is an emergency, please call 911 immediately. . Non-Emergent Contact Non-Emergency issues call your: Surgeon Call Non-Emergent contact if: temperature is above 100.5, your pain is not controlled, wound has increased drainage, wound has increased redness . . "Provider Documentation" section prepared by Jun Perea. . VTE Core Measure Inpt VTE Proph given/why not?: Treatment not indicated
[2017-07-31] MEDS ORDERED: MAGNESIUM HYDROXIDE SUSP 30 ML UDC PO ONE (09:45)
[2017-07-31 13:48] VITALS: BP_DIAS 66; PULSE 81; TEMP 36.6
== END 2017-07-31 14:33 | disposition home or self-care (01) | DRG 775 ==
LOC: C.OPB 10:24 → C.LD 10:24 → C.OPB 11:55 → C.LD 11:55 → C.OBG 21:32
PROVIDERS: ADMIT Obstetrics & Gynecology; ATTEND Obstetrics & Gynecology
PROC: 10E0XZZ Delivery of Products of Conception, External Approach (ICD-10-PCS; principal; 2017-07-29)
PROC: 0DQR0ZZ Repair Anal Sphincter, Open Approach (ICD-10-PCS; principal; 2017-07-29)
DX: O69.82X1 Labor and delivery complicated by other cord entanglement, without compression, fetus 1 (principal); O70.20 Third degree perineal laceration during delivery, unspecified; Z37.0 Single live birth; Z3A.40 40 weeks gestation of pregnancy